=== PATIENT | female | born 1970 ===

== ENCOUNTER 2018-01-08 10:07 | Emergency (ER) | payer OTHER ==
[~2018-01-08] VITALS: Ht 165.1 cm; Wt 59.0 kg
[2018-01-08] MEDS ORDERED: SIMVASTATIN10 MG (10:40)
== END 2018-01-08 12:45 | disposition home or self-care (01) ==
LOC: ER 10:07
DX: B34.9 Viral infection, unspecified (principal); R42 Dizziness and giddiness

== ENCOUNTER 2022-12-17 13:37 | Emergency (ER) | payer OTHER ==
[~2022-12-17] VITALS: Ht 165.1 cm; Wt 64.4 kg
[~2022-12-17 13:37] MED LIST: SIMVASTATIN10 MG
== END 2022-12-17 17:23 | disposition home or self-care (01) ==
LOC: ER 13:37
DX: I10 Essential (primary) hypertension (principal)